=== PATIENT | female | born 1975 | race Caucasian/White ===

== ENCOUNTER 2023-11-10 22:21 | Emergency (ER) | payer BC ==
[~2023-11-10] VITALS: Ht 157.5 cm; Wt 91.4 kg
[2023-11-10 23:02] VITALS: TEMP 98.4; O2SAT 100
[2023-11-11 00:03] LABS: BASOPHILS % 0.7 % (0.0-2.0); EOSINOPHILS % 0.5 % (0.0-5.0); HEMATOCRIT. 37.6 % (36.0-48.0); HEMOGLOBIN. 12.4 g/dL (12.0-16.0); LYMPHOCYTES % 14.9 % (20.0-50.0); MEAN CORPUSCULAR HEMOGLOBIN 30.5 pg (28.0-32.0); MEAN CORPUSCULAR VOLUME 92.5 fL (81.0-99.0); MEAN PLATELET VOLUME 8.2 fl (7.4-10.4); NEUTROPHILS % 74.9 % (40.0-76.0); PLATELET 257 x1000/uL (130-400); RED BLOOD CELL COUNT 4.06 mill/uL (4.2-5.4); RED CELL DISTRIBUTION WIDTH 13.6 % (11.6-14.6); WHITE BLOOD COUNT 10.3 x1000/uL (4.5-11.0)
[2023-11-11] MEDS: KETOROLAC 30MG/ML VIAL IV STA (00:03)
[2023-11-11] MEDS: SODIUM CHLORIDE 0.9% 1,000 ML IV ONE (00:04)
[2023-11-11] MEDS: ONDANSETRON HCL 4MG/2ML INJ IV STA (00:04)
[2023-11-11 00:22] LABS: ALANINE AMINOTRANSFERASE 11 IU/L (10-49); ALBUMIN 4.3 g/dL (3.2-4.8); ASPARTATE AMINOTRANSFERASE 13 IU/L (<34); BILIRUBIN TOTAL 0.4 mg/dL (0.1-1.0); CALCIUM 8.5 mg/dL (8.7-10.4); CARBON DIOXIDE 26 mEq/L (21-32); CHLORIDE 108 mEq/L (98-107); CREATININE 0.6 mg/dL (0.6-1.0); GLUCOSE 99 mg/dL (70-105); POTASSIUM 3.9 mEq/L (3.5-5.1); PROTEIN TOTAL 7.3 g/dL (6.0-8.3); SODIUM 139 mEq/L (136-145); UREA NITROGEN BLOOD 12 mg/dL (9-23)
[2023-11-11 00:33] LABS: TROPONIN I HIGH SENSITIVITY < 4 ng/L (3.0-34)
[2023-11-11] MEDS: MECLIZINE 25MG TABLET PO ONE (00:34)
[2023-11-11 02:19] LABS: HCG SCREEN NEGATIVE
[2023-11-11] MEDS ORDERED: MECL-299 PO (04:21)
[2023-11-11 04:28] VITALS: BP 138/71; PULSE 67; RESP 18
== END 2023-11-11 04:30 | disposition home or self-care (01) ==
LOC: ER 22:21
DX: H81.10 Benign paroxysmal vertigo, unspecified ear (principal); Z86.73 Personal history of transient ischemic attack (TIA), and cerebral infarction without residual deficits
CPT/HCPCS: 99285; 96374; 96361; 96375; 80053; 84703; 83880; 85025; 84484; 36415; 93005; 70450; J8597; J1885; J2405; J7030